=== PATIENT | female | born 1980 | race African-American/Black ===

== ENCOUNTER 2018-02-11 16:57 | Inpatient (IN) | payer BC ==
[2018-03-12 09:46] VITALS: BMI 29.0
[2018-03-13] MEDS ORDERED: Sodium Chloride 0.9% 10 ML ONE (07:05)
[2018-03-13] MEDS ORDERED: Thrombin 5000 UNITS/5 ML VIAL ONE ×2 (07:05→10:37)
[2018-03-13] MEDS ORDERED: Bacitracin Zinc Ointment 30 gm TUBE ONE (07:05)
[2018-03-13] MEDS ORDERED: Fentanyl 250 MCG/5 ML VIAL ONE (07:21)
[2018-03-13] MEDS ORDERED: CEFAZOLIN 2 GM/50 ML BAG ONE (07:28)
[2018-03-13] MEDS ORDERED: Midazolam HCl 2 mg/2 ml Vial ONE (07:29)
[2018-03-13] MEDS ORDERED: Fentanyl 100 MCG/2 ML VIAL ONE ×5 (07:29→15:06)
[2018-03-13 07:35] LABS: #Basophils 0.1 thou/uL (0.0-0.2); #Eosinphils 0.2 thou/uL (0.0-0.7); #Lymphocytes 2.8 thou/uL (1.20-3.40); #Monocytes 0.4 thou/uL (0.11-0.59); #Neutrophils 2.6 thou/uL (1.40-6.50); %Basophils 1.5 % (0.0-1.0); %Eosinophils 3.1 % (0.0-10.0); %Lymphocytes 47.1 % (21.0-51.0); %Monocytes 5.8 % (0.0-10.0); %Neutrophils 42.7 % (42.0-75.0); Hemoglobin 13.7 g/dL (12.0-16.0); Mean Corpuscular HGB CONC 32.9 g/dL (32.0-36.0); Mean Corpuscular Hemoglobin 31.5 pg (27.0-31.0); Mean Corpuscular Volume 95.6 fL (78.0-98.0); Platelet Count 273 thou/uL (130-400); RBC Distribution Width 12.5 % (11.5-14.5); Red Blood Cell (RBC) Count 4.35 mill/uL (4.20-5.40)
[2018-03-13 07:42] LABS: Prothrombin Time 13.1 SEC (12.0-14.7)
[2018-03-13 07:43] LABS: PTT 28.9 SEC (22.9-36.1)
[2018-03-13 07:54] LABS: Anion Gap 11 mmol/L (10-20); BUN (Urea Nitrogen) 4 mg/dL (7.0-18.7); Calc. Creatinine Clearance 121 mL/min (70-130); Calcium 9.8 mg/dL (7.8-10.44); Carbon Dioxide 27 mmol/L (22-29); Chloride 105 mmol/L (98-107); Estimated GFR-MDRD Greater than 90; Glucose 82 mg/dL (70-105); Potassium 3.8 mmol/L (3.5-5.1); Sodium 139 mmol/L (136-145)
[2018-03-13] MEDS ORDERED: PHENYLEPHRINE-NS 100 MCG/ML 10 ML SYRINGE ONE ×4 (09:10→13:07)
[2018-03-13] MEDS ORDERED: Albumin 5% 500 ML ONE (09:13)
[2018-03-13] MEDS ORDERED: Phenylephrine HCL 10 MG/ML VIAL ONE (09:16)
--- NOTE | 2018-03-13 12:38 | OP ---
DATE OF PROCEDURE: 03/13/2018 OR: OR #11. WOUND TYPE: Type 1 wound. SURGEON: Ghassan Faulkner M.D. PATIENT TRANSPORT OFFICER: Tristan Baker PA-C. PREPROCEDURE DIAGNOSES: Grade III L5 on S1 spondylolisthesis with L5 radiculopathy and low back and leg pain. POSTPROCEDURE DIAGNOSES: Grade III L5 on S1 spondylolisthesis with L5 radiculopathy and low back and leg pain. PROCEDURE: 1. L4-L5, L5-S1 posterolateral fusion with local bone autograft obtained from same incision, allogra ft and BMP. 2. L4, L5, S1 pedicle screw jigar fixation for stabilization of grade III spondylolisthesis. 3. L5-S1 laminectomies, facetectomy for decompression of the exiting left L5 and traversing left S1 nerve roots with foraminotomies. PROCEDURE: After informed consent was obtained, the patient was brought to OR 11. Proper patient pa use and identification was carried out. She was placed under excellent general endotracheal anesthes ia and positioned prone on the OR table. All appropriate points were padded. We identified the L4, L5, S1 dorsal spines and lamina and the spondylolisthesis segment of L5 on S1. This region was steri hugh cleansed, prepared, and draped. Proper patient pause and identification was carried out. The w ound was then opened with a combination of sharp, monopolar and blunt dissection, and the L4, L5 and S1 dorsal spines and lamina were exposed. The grade III spondylolisthesis site was identified L5 and S1 and the L4, L5 and S1 facet complexes at L4-L5 and L5-S1 along with transverse processes and sacr al ala were all exposed. Localization film confirmed our area of interest. We then performed a L5-S 1 laminectomy, facetectomy, particularly on the left maximize decompression of the L5 and S1 nerve ro ots. There was no spinal fluid leak. I followed the left L5 nerve root out until it descended anter ior to the transverse ligament. I assured freedom of the right L5 nerve root as well and the right S 1 nerve root. L4, L5 and S1 pedicle screw jigar fixation then occurred with final tightening, I was sa tisfied with both gross fluoroscopic and CT assessment of the hardware. Final tightening occurred. There was no spinal fluid leak. DuraSeal was placed over the dural tube to protect the dura, althoug h there was no spinal fluid leak. BMP was laid in the posterolateral region. Local bone autograft o btained from same incision and allograft for arthrodesis following decortication of the transverse pr ocesses and sacral ala. Copious irrigation occurred throughout as did maximizing hemostasis. The wo und was then closed in anatomic layers following the sprinkling of vancomycin. The patient then carter ged from anesthesia.
[2018-03-13] MEDS ORDERED: HYDROmorphone 2 MG/ML VIAL ONE ×2 (12:48→13:47)
[2018-03-13] MEDS ORDERED: Metoclopramide HCl 10 MG/2 ML VIAL ONE (13:07)
[2018-03-13] MEDS ORDERED: Ondansetron PF 4 MG/2 ML Vial ONE (13:07)
[2018-03-13] MEDS ORDERED: PROPOFOL 200 MG/20 ML VIAL ONE ×2 (13:07)
[2018-03-13] MEDS ORDERED: Lidocaine 1% PF 5 ML VIAL ONE ×2 (13:07)
[2018-03-13] MEDS ORDERED: Glycopyrrolate 0.2 MG/ML 5 ML SYRINGE ONE ×2 (13:07)
[2018-03-13] MEDS ORDERED: Dexamethasone 20 MG/5 ML VIAL ONE (13:07)
[2018-03-13] MEDS ORDERED: ePHEDrine/0.9% NaCl/PF SYRINGE 50 mg/10 ml ONE (13:07)
[2018-03-13] MEDS ORDERED: Promethazine HCl 25 MG/ML VIAL IM PRN ×2 (13:21→13:33)
[2018-03-13] MEDS ORDERED: Bisacodyl 10 MG SUPP PR PRN (13:21)
[2018-03-13] MEDS ORDERED: Fleet Enema 133 ML BOT PR PRN (13:21)
[2018-03-13] MEDS ORDERED: Milk Of Magnesia 30 ML UDCUP PO PRN (13:21)
[2018-03-13] MEDS ORDERED: Mag-Al 1200 mg/1200 mg/30 ML UDCUP PO PRN (13:21)
[2018-03-13] MEDS ORDERED: Morphine Sulfate 2 MG/ML SYRINGE SLOW IVP PRN (13:33)
[2018-03-13] MEDS ORDERED: Promethazine HCl 25 MG/ML VIAL SLOW IVP PRN (13:33)
[2018-03-13] MEDS ORDERED: PACU-Morphine 4MG/ML VIAL SLOW IVP PRN (13:33)
[2018-03-13] MEDS ORDERED: Ondansetron HCl/PF 4 MG/2 ML Vial IVP PRN (13:33)
[2018-03-13] MEDS ORDERED: HYDROmorphone 2 MG/ML VIAL SLOW IVP PRN (13:33)
[2018-03-13] MEDS ORDERED: Meperidine HCl/PF 25 MG/ML VIAL SLOW IVP PRN (13:33)
--- NOTE | 2018-03-13 15:36 | EKG ---
Test Reason : PREOP Blood Pressure : / mmHG Vent. Rate : 080 BPM Atrial Rate : 080 BPM P-R Int : 158 ms QRS Dur : 076 ms QT Int : 400 ms P-R-T Axes : 057 -01 030 degrees QTc Int : 461 ms Normal sinus rhythm Minimal voltage criteria for LVH, may be normal variant Borderline ECG Confirmed by MICHELLE CALDERON ([id number]) on 03/13/2018 3:36:21 PM Referred By: CHACE Confirmed By:MICHELLE CALDERON
[2018-03-13] MEDS: Cyclobenzaprine 10 MG TAB PO PRN (15:42)
[2018-03-13] MEDS: Sodium Chloride 0.9% 1,000 ML IV SCH (15:43)
[2018-03-13] MEDS: HYDROcodone/Acetaminophen 7.5/325 mg Tablet PO PRN (15:43)
[2018-03-13] MEDS ORDERED: CEFAZOLIN 2 GM/50 ML BAG IVPB SCH (16:00)
[2018-03-13] MEDS: Morphine 4 MG/ML VIAL SLOW IVP PRN ×3 (16:15→23:38)
[2018-03-13] MEDS: traMADol HCl 50 MG TAB PO PRN (17:20)
[2018-03-13] MEDS: Acetaminophen/Codeine 30-300mg Tablet PO PRN (17:20)
[2018-03-13] MEDS: CEFAZOLIN 2 GM/50 ML BAG IVPB SCH (20:41)
[2018-03-14] MEDS: HYDROcodone/Acetaminophen 7.5/325 mg Tablet PO PRN ×3 (00:47→09:00)
[2018-03-14] MEDS: Morphine 4 MG/ML VIAL SLOW IVP PRN ×10 (03:05→22:48)
[2018-03-14] MEDS: CEFAZOLIN 2 GM/50 ML BAG IVPB SCH ×3 (03:06→19:57)
[2018-03-14] MEDS: Cyclobenzaprine 10 MG TAB PO PRN ×2 (04:24→17:27)
[2018-03-14] MEDS: Sodium Chloride 0.9% 1,000 ML IV SCH ×2 (04:57→15:56)
[2018-03-14] MEDS ORDERED: Ketorolac Tromethamine 30 MG/ML VIAL IVP PRN (11:27)
[2018-03-14] MEDS: Gabapentin 300 MG CAP PO SCH ×2 (15:48→19:56)
[2018-03-14] MEDS: Acetaminophen/Codeine 30-300mg Tablet PO PRN (19:56)
[2018-03-14] MEDS: traMADol HCl 50 MG TAB PO PRN (23:05)
[2018-03-15] MEDS: Morphine 4 MG/ML VIAL SLOW IVP PRN ×5 (00:52→08:01)
[2018-03-15] MEDS: Cyclobenzaprine 10 MG TAB PO PRN ×3 (00:53→20:10)
[2018-03-15] MEDS: Acetaminophen/Codeine 30-300mg Tablet PO PRN ×4 (02:09→20:12)
[2018-03-15] MEDS: Sodium Chloride 0.9% 1,000 ML IV SCH ×2 (03:00→17:49)
[2018-03-15] MEDS: oxyCODONE/Acetaminophen 5 mg/325 mg Tablet PO PRN ×3 (04:57→23:02)
[2018-03-15] MEDS: traMADol HCl 50 MG TAB PO PRN ×2 (05:52→11:49)
[2018-03-15] MEDS: CEFAZOLIN 2 GM/50 ML BAG IVPB SCH ×3 (05:52→20:10)
[2018-03-15] MEDS: Gabapentin 300 MG CAP PO SCH ×3 (07:59→20:10)
[2018-03-15] MEDS: Citalopram 20 MG TAB PO SCH (07:59)
[2018-03-15] MEDS: Lisinopril/Hydrochlorothiazide 20 mg/12.5 mg Tablet PO SCH (08:00)
--- NOTE | 2018-03-15 09:31 | PRG ---
DATE OF SERVICE: 03/15/2018 SUBJECTIVE: I am visiting with Ms. Jalloh 2 days postoperatively. She continues to complain of right foot numbness and is having increased pain in her legs, as well. She does seem relatively comfortabl e in the bed; however. She is relatively poorly cooperative with exam, but certainly has strength in all muscle groups. With encouragement, she seems to have more strength. She reports that she stood several times yesterday. Overall, her progress has been quite slow and the pain in her legs and her subjective complaints of w eakness are somewhat concerning. Additionally, a Wright has been placed. We will watch her closely a nd consider repeat imaging with CT scan if there is no improvement or if there is any deterioration.
[2018-03-15] MEDS ORDERED: HYDROmorphone 10 mg/100 ml CADD IV PRN (11:14)
[2018-03-15] MEDS ORDERED: Meloxicam 15 MG TAB PO SCH (11:15)
[2018-03-15] MEDS ORDERED: Sodium Chloride 0.9% 500 ML IVPB SCH (17:15)
[2018-03-15] MEDS: Acetaminophen 325 MG TAB PO PRN (17:47)
[2018-03-15 19:32] LABS: Hemoglobin 9.6 g/dL (12.0-16.0); Mean Corpuscular HGB CONC 33.1 g/dL (32.0-36.0); Mean Corpuscular Hemoglobin 32.3 pg (27.0-31.0); Mean Corpuscular Volume 97.6 fL (78.0-98.0); Mean Platelet Volume 7.2 fL (7.4-10.4); Platelet Count 209 thou/uL (130-400); RBC Distribution Width 12.3 % (11.5-14.5); Red Blood Cell (RBC) Count 2.97 mill/uL (4.20-5.40); White Blood Cell (WBC) Count 15.6 thou/uL (4.8-10.8)
[2018-03-15 19:49] LABS: Band 2 % (5-11); Lymphocytes 13 % (21-51); MDiff Complete? YES; Monocytes 1 % (0-10); Neutrophil 84 % (42-75); PLT Morphology Comment Appears Adequate; Polychromasia SLIGHT = 2-3 cells (100X) (0-2/hpf)
[2018-03-15 19:51] LABS: Anion Gap 11 mmol/L (10-20); BUN (Urea Nitrogen) 12 mg/dL (7.0-18.7); Calc. Creatinine Clearance 116 mL/min (70-130); Calcium 8.3 mg/dL (7.8-10.44); Carbon Dioxide 25 mmol/L (22-29); Chloride 102 mmol/L (98-107); Estimated GFR-MDRD 87; Glucose 90 mg/dL (70-105); Potassium 3.4 mmol/L (3.5-5.1); Sodium 135 mmol/L (136-145)
[2018-03-15 20:59] LABS: Bilirubin Negative (Negative); Blood, Urine Moderate (Negative); Clarity CLEAR (Clear); Glucose, Urine (Dipstick) Negative (Negative); Leukocyte Small (Negative); Nitrite Negative (Negative); Protein, Urine (Dipstick) Trace mg/dL (Neg-Trace); Specific Gravity, Urine 1.027 (1.002-1.036); Urobilinogen 0.2 mg/dL (0.2-1.0)
[2018-03-15 21:00] LABS: Bacteria/HPF None Seen HPF (None Seen); Hyaline Casts/LPF 4-6 HYALINE CAST LPF (0-3 Hyaline); Pathc Cast-AUWi Flag 0.87 (0-2.49); Squamous Epithelial 0-3 HPF (0-3)
[2018-03-15 21:01] LABS: Yeast-AUWi Flag 59.4 (0-25.0)
[2018-03-15 21:12] LABS: Renal Epithelial 0-3 HPF (0-3)
--- NOTE | 2018-03-15 21:29 | ULT ---
BILATERAL LOWER EXTREMITY VENOUS DOPPLER ULTRASOUND EVALUATION 03/15/18 HISTORY: Bilateral lower extremity pain and swelling. Multiple longitudinal and transverse images of the right and left lower extremity venous systems wer e obtained using a multihertz linear array transducer. Real time, color flow and spectral waveform do ppler analysis demonstrates no evidence of acute or old clot seen in the right or left common femoral , superficial femoral, femora profunda, popliteal, posterior tibial vein, post trifurcation veins, an d right and left lower extremity greater saphenous veins. IMPRESSION: No evidence of right or left lower extremity deep venous thrombosis. POS: [facility]
[2018-03-16] MEDS: Acetaminophen/Codeine 30-300mg Tablet PO PRN ×4 (02:19→17:30)
[2018-03-16] MEDS: oxyCODONE/Acetaminophen 5 mg/325 mg Tablet PO PRN ×3 (03:22→13:27)
[2018-03-16] MEDS: CEFAZOLIN 2 GM/50 ML BAG IVPB SCH ×3 (03:23→20:13)
[2018-03-16] MEDS: Cyclobenzaprine 10 MG TAB PO PRN (03:44)
[2018-03-16] MEDS: traMADol HCl 50 MG TAB PO PRN ×2 (03:44→13:28)
[2018-03-16] MEDS: Gabapentin 300 MG CAP PO SCH ×3 (08:43→20:06)
[2018-03-16] MEDS: Citalopram 20 MG TAB PO SCH (08:44)
[2018-03-16] MEDS: Sodium Chloride 0.9% 1,000 ML IV SCH ×2 (08:45→23:26)
[2018-03-16] MEDS: Lisinopril/Hydrochlorothiazide 20 mg/12.5 mg Tablet PO SCH (08:46)
[2018-03-16 08:50] LABS: #Eosinphils 0.2 thou/uL (0.0-0.7); #Lymphocytes 2.7 thou/uL (1.20-3.40); #Neutrophils 9.7 thou/uL (1.40-6.50); %Basophils 0.2 % (0.0-1.0); %Eosinophils 1.3 % (0.0-10.0); %Lymphocytes 19.8 % (21.0-51.0); %Monocytes 7.4 % (0.0-10.0); %Neutrophils 71.3 % (42.0-75.0); Hemoglobin 8.5 g/dL (12.0-16.0); Mean Corpuscular HGB CONC 32.1 g/dL (32.0-36.0); Mean Corpuscular Hemoglobin 31.3 pg (27.0-31.0); Mean Corpuscular Volume 97.4 fL (78.0-98.0); Mean Platelet Volume 7.1 fL (7.4-10.4); Platelet Count 188 thou/uL (130-400); RBC Distribution Width 12.3 % (11.5-14.5); White Blood Cell (WBC) Count 13.6 thou/uL (4.8-10.8)
[2018-03-16 08:56] LABS: Anion Gap 9 mmol/L (10-20); BUN (Urea Nitrogen) 16 mg/dL (7.0-18.7); Calc. Creatinine Clearance 124 mL/min (70-130); Calcium 8.1 mg/dL (7.8-10.44); Carbon Dioxide 25 mmol/L (22-29); Chloride 104 mmol/L (98-107); Estimated GFR-MDRD Greater than 90; Glucose 82 mg/dL (70-105); Potassium 3.4 mmol/L (3.5-5.1); Sodium 135 mmol/L (136-145)
[2018-03-16] MEDS ORDERED: Meloxicam 15 MG TAB PO SCH (09:00)
[2018-03-16] MEDS ORDERED: tiZANidine HCl 4 MG TAB PO PRN (09:05)
--- NOTE | 2018-03-16 11:19 | CT ---
CT LUMBAR SPINE WITHOUT CONTRAST: HISTORY: A 37-year-old female with back surgery 3 days ago. Complains of low back pain and fever. FINDINGS: There are postop changes of posterior spinal fusion with bilateral screws at L4-L5-S1 level and assoc iated changes of laminectomy. There is grade II anterolisthesis of L5 over S1. Soft tissue air and a small amount of fluid in the surgical bed consistent with postop change. There is a tiny amount of free fluid in the pelvis. Metallic hardware appears intact. Exam is limited due to artifact from metallic hardware and absence of IV contrast. POS: [facility]
--- NOTE | 2018-03-16 13:16 | PDOC.PN ---
- Subjective Encounter Start Date: 03/16/18 Encounter Start Time: 11:00 Pt seen for management of medical comorbidities, including fevers. Denies chest pain. Reports low back pain. Feels weak. No nausea or vomiting. - Objective MAR Reviewed: Yes Vital Signs & Weight: Vital Signs (12 hours) Temp Pulse Resp BP Pulse Ox 03/16/18 11:47 98.7 F 101 H 20 95/60 97 03/16/18 08:44 99.8 F H 98 18 89/56 L 98 03/16/18 03:52 100.1 F H 102 H 26 H 89/56 L 99 Weight Weight 185 lb I&O: 03/15/18 03/16/18 03/17/18 07:59 06:59 06:59 Intake Total Output Total Balance Result Diagrams: 03/17/18 04:55 03/17/18 04:55 Additional Labs: Labs reviewed by me Phys Exam - Physical Examination Constitutional: NAD HEENT: moist MMs Neck: supple Respiratory: clear to auscultation bilateral Cardiovascular: RRR Gastrointestinal: soft s/p lumbar spine surgery Psychiatric: normal affect Dx/Plan (1) Fever Code(s): R50.9 - FEVER, UNSPECIFIED Status: Acute Comment: nalysis unremarkable. Pt is on cefazolin. Check chest x-ray after ensuring pt is not (2) Neuropathic pain Code(s): M79.2 - NEURALGIA AND NEURITIS, UNSPECIFIED Status: Chronic Comment : continue gabapentin - Plan * . Pt reports that she does not take any antihypertensives at home. Will add PRN IV hydralazine for blood pressure spikes. s/p lumbar spine surgery. DVT prophylaxis and pain management per neurosurgery service. Review of Systems - Review of Systems Constitutional: fever Respiratory: negative: Cough, Shortness of Breath, SOB with Excertion, Pleuritic Pain, Wheezing Cardiovascular: negative: chest pain, palpitations, orthopnea, paroxysmal nocturnal dyspnea, edema, light headedness Musculoskeletal: Back Pain - Medications/Allergies Allergies/Adverse Reactions: Allergies Allergy/AdvReac Type Severity Reaction Status Date / Time No Known Allergies Allergy Verified 03/12/18 09:46 Medications: Current Medications Acetaminophen (Tylenol) 650 mg PO Q4H PRN PRN Reason: Headache/Fever or Pain Last Admin: 03/15/18 17:47 Dose: 650 mg Acetaminophen/Codeine Phosphate (Tylenol #3) 1 tab PO Q3H PRN PRN Reason: Mild Pain (1-3) Last Admin: 03/16/18 11:55 Dose: 1 tab Al Hydroxide/Mg Hydroxide (Maalox) 30 ml PO Q4H PRN PRN Reason: Indigestion Bisacodyl (Dulcolax) 10 mg DC Q12H PRN PRN Reason: Constipation Cefazolin Sodium/Dextrose (Ancef 2 Gm/50 Ml) 2 gm IVPB 0400,1200,2000 [facility] Last Admin: 03/16/18 11:55 Dose: 2 gm Citalopram Hydrobromide (Celexa) 40 mg PO DAILY [facility] Last Admin: 03/16/18 08:44 Dose: 40 mg Gabapentin (Neurontin) 600 mg PO TID [facility] Last Admin: 03/16/18 08:43 Dose: 600 mg Lisinopril/HCTZ (Prinizide 20-12.5) 1 tab PO DAILY [facility] Last Admin: 03/16/18 08:46 Dose: Not Given Sodium Chloride (Normal Saline 0.9%) 1,000 mls @ 75 mls/hr IV .[id number] [facility] Last Admin: 03/16/18 08:45 Dose: 1,000 mls Magnesium Hydroxide (Milk Of Magnesium) 30 ml PO Q12H PRN PRN Reason: Constipation Meloxicam (Mobic) 15 mg PO DAILY [facility] Last Admin: 03/16/18 08:44 Dose: 15 mg Morphine Sulfate (Morphine) 2 mg SLOW IVP Q1H PRN PRN Reason: Severe Pain (7-10) Last Admin: 03/15/18 08:01 Dose: 2 mg Oxycodone/Acetaminophen (Percocet 5/325) 1 tab PO Q4H PRN PRN Reason: Moderate Pain (4-6) Last Admin: 03/16/18 08:44 Dose: 1 tab Promethazine HCl (Phenergan) 12.5 mg IM Q4H PRN PRN Reason: Nausea/Vomiting Sodium Biphosphate/Sodium Phosphate (Fleet Enema) 133 ml DC ONE PRN PRN Reason: Constipation Stop: 03/16/18 13:22 Sodium Chloride (Flush - Normal Saline) 10 ml IVF PRN PRN PRN Reason: Saline Flush Last Admin: 03/15/18 08:02 Dose: 10 ml Tizanidine HCl (Zanaflex) 4 mg PO Q8H PRN PRN Reason: SPASMS Last Admin: 03/16/18 11:55 Dose: 4 mg Tramadol HCl (Ultram) 50 mg PO Q6H PRN PRN Reason: Mild Pain (1-3) 2ND LINE Last Admin: 03/16/18 03:44 Dose: 50 mg
[2018-03-16 13:36] LABS: BHCG - Serum Negative (NEGATIVE); Pregs Control Background? CLEAR/WHITE (CLR/WHITE); Pregs Control Bar Appear? YES (CONTROL BAR)
[2018-03-16] MEDS ORDERED: Sodium Chloride 0.9% 1,000 ML IV SCH (16:30)
--- NOTE | 2018-03-16 17:04 | RAD ---
AP VIEW CHEST: 03/16/2018 HISTORY: Fever. Status post laminectomy fusion. COMPARISON: 05/16/2014 FINDINGS: AP view chest demonstrates mild cardiomegaly. No evidence of effusion is seen. No evidence of pneum onia or pneumothorax is seen. IMPRESSION: Unremarkable anterior-posterior view chest. POS: [facility]
[2018-03-16] MEDS: Ketorolac Tromethamine 30 MG/ML VIAL IVP PRN ×2 (17:30→23:21)
[2018-03-16] MEDS ORDERED: hydrALAZINE 20 MG/ML VIAL SLOW IVP PRN (18:50)
[2018-03-16] MEDS: Acetaminophen 325 MG TAB PO PRN (20:06)
[2018-03-16] MEDS ORDERED: Sodium Chloride 0.9% 500 ML IV SCH (22:45)
--- NOTE | 2018-03-16 22:46 | PDOC.EVN ---
Event Note - Event Note Event Note: RN called for low BP. Started on Tizanidine this AM which is very common to cause low BP. Will hold Tizanidine. 500 ml NS bolus. Increase IVF to 125 ml/hr.
[2018-03-17] MEDS: Acetaminophen 325 MG TAB PO PRN ×4 (01:32→13:04)
[2018-03-17] MEDS ORDERED: Sodium Chloride 0.9% 500 ML IV SCH (03:45)
[2018-03-17] MEDS: CEFAZOLIN 2 GM/50 ML BAG IVPB SCH ×3 (04:06→20:07)
[2018-03-17] MEDS: Ketorolac Tromethamine 30 MG/ML VIAL IVP PRN ×3 (04:46→20:13)
[2018-03-17] MEDS: Sodium Chloride 0.9% 1,000 ML IV SCH ×3 (04:52→20:16)
[2018-03-17 05:21] LABS: #Eosinphils 0.4 thou/uL (0.0-0.7); #Lymphocytes 1.7 thou/uL (1.20-3.40); #Monocytes 0.7 thou/uL (0.11-0.59); #Neutrophils 5.5 thou/uL (1.40-6.50); %Basophils 0.2 % (0.0-1.0); %Eosinophils 4.9 % (0.0-10.0); %Lymphocytes 20.3 % (21.0-51.0); %Monocytes 7.9 % (0.0-10.0); %Neutrophils 66.7 % (42.0-75.0); Hemoglobin 8.3 g/dL (12.0-16.0); Mean Corpuscular HGB CONC 32.3 g/dL (32.0-36.0); Mean Corpuscular Hemoglobin 31.8 pg (27.0-31.0); Mean Corpuscular Volume 98.4 fL (78.0-98.0); Mean Platelet Volume 7.3 fL (7.4-10.4); Platelet Count 179 thou/uL (130-400); RBC Distribution Width 12.3 % (11.5-14.5); Red Blood Cell (RBC) Count 2.61 mill/uL (4.20-5.40); White Blood Cell (WBC) Count 8.2 thou/uL (4.8-10.8)
[2018-03-17 05:34] LABS: ALT (SGPT) 8 U/L (8-55); AST (SGOT) 28 U/L (5-34); Albumin 2.7 g/dL (3.5-5.0); Alkaline Phosphatase 46 U/L (40-150); Anion Gap 8 mmol/L (10-20); BUN (Urea Nitrogen) 11 mg/dL (7.0-18.7); Bilirubin, Total 0.2 mg/dL (0.2-1.2); Calc. Creatinine Clearance 136 mL/min (70-130); Calcium 7.6 mg/dL (7.8-10.44); Carbon Dioxide 23 mmol/L (22-29); Chloride 109 mmol/L (98-107); Estimated GFR-MDRD Greater than 90; Globulin 2.5 g/dL (2.4-3.5); Glucose 84 mg/dL (70-105); Magnesium 1.7 mg/dL (1.6-2.6); Potassium 3.4 mmol/L (3.5-5.1); Protein, Total 5.2 g/dL (6.0-8.3); Sodium 137 mmol/L (136-145)
[2018-03-17] MEDS: Gabapentin 300 MG CAP PO SCH ×3 (08:03→20:09)
[2018-03-17] MEDS: Citalopram 20 MG TAB PO SCH (08:03)
[2018-03-17] MEDS: tiZANidine HCl 4 MG TAB PO PRN ×2 (08:03→17:12)
[2018-03-17] MEDS: Famotidine 20 MG TAB PO SCH ×2 (08:03→20:10)
--- NOTE | 2018-03-17 09:25 | PRG ---
DATE OF SERVICE: 03/17/2018 Ms. Jalloh is now postoperative day #4, having undergone a multilevel posterior lumbar fusion for a gra de III spondylolisthesis. The patient continues to complain of back pain and right buttock, posterio r thigh and foot numbness and tingling with some pain. She is on several different types of narcotic pain medications as well as gabapentin. She did have an ultrasound of the bilateral lower extremiti es as she has not been ambulating since surgery. This is negative. She remains with good strength; however in the bilateral lower extremities. We did have a long discussion about her becoming more mo bile and we would like to increase mobilization very soon to help prevent multiple complications post op. She stated her understanding. We will attempt to ambulate with therapy today. We are still als o making sure that her hypotension is minimized by minimizing her narcotics. We also discussed this. Please call with any changes in the patient's neurologic status. We appreciate the Hospitalist livia arora also following her.
[2018-03-17] MEDS: traMADol HCl 50 MG TAB PO PRN (09:26)
--- NOTE | 2018-03-17 12:12 | PDOC.PN ---
- Subjective Encounter Start Date: 03/17/18 Encounter Start Time: 07:40 Pt seen for followup re: fever. Denies fever. No nausea or vomiting. Low back pain+. - Objective MAR Reviewed: Yes Vital Signs & Weight: Vital Signs (12 hours) Temp Pulse Pulse Resp BP BP Pulse Ox 03/17/18 11:20 98.1 F 65 20 99/65 100 03/17/18 10:36 73 96/67 03/17/18 07:29 98.1 F 76 24 H 113/64 100 03/17/18 03:31 98.1 F 76 18 87/50 L 100 03/17/18 00:30 76 93/51 L Pulse Ox 03/17/18 11:20 03/17/18 10:36 100 03/17/18 07:29 03/17/18 03:31 03/17/18 00:30 Weight Weight 185 lb I&O: 03/16/18 03/17/18 03/18/18 06:59 06:59 06:59 Intake Total 5757 Output Total 2925 Balance 2832 Result Diagrams: 03/17/18 04:55 03/17/18 04:55 Additional Labs: Labs reviewed by me Phys Exam - Physical Examination Constitutional: NAD HEENT: moist MMs Neck: supple Respiratory: clear to auscultation bilateral Cardiovascular: RRR Gastrointestinal: soft Neurological: moves all 4 limbs Psychiatric: normal affect Dx/Plan (1) Fever Code(s): R50.9 - FEVER, UNSPECIFIED Status: Acute Comment: CXR unremarkable , pt afebrile overnight. Tizanidine discontinued due to hypotension. (2) Neuropathic pain Code(s): M79.2 - NEURALGIA AND NEURITIS, UNSPECIFIED Status: Chronic Comment : on gabapentin - Plan * . Review of Systems - Review of Systems Constitutional: negative: fever, chills, sweats, weakness, malaise Respiratory: negative: Cough, Shortness of Breath, SOB with Excertion, Pleuritic Pain, Wheezing Cardiovascular: negative: chest pain, palpitations, orthopnea, paroxysmal nocturnal dyspnea, edema, light headedness Musculoskeletal: Back Pain - Medications/Allergies Allergies/Adverse Reactions: Allergies Allergy/AdvReac Type Severity Reaction Status Date / Time No Known Allergies Allergy Verified 03/12/18 09:46 Medications: Current Medications Acetaminophen (Tylenol) 650 mg PO Q4H PRN PRN Reason: Headache/Fever or Pain Last Admin: 03/17/18 09:27 Dose: 650 mg Acetaminophen/Codeine Phosphate (Tylenol #3) 1 tab PO Q3H PRN PRN Reason: Mild Pain (1-3) Last Admin: 03/16/18 17:30 Dose: 1 tab Al Hydroxide/Mg Hydroxide (Maalox) 30 ml PO Q4H PRN PRN Reason: Indigestion Bisacodyl (Dulcolax) [address] Q12H PRN PRN Reason: Constipation Cefazolin Sodium/Dextrose (Ancef 2 Gm/50 Ml) 2 gm IVPB 0400,1200,2000 [facility] Last Admin: 03/17/18 04:06 Dose: 2 gm Citalopram Hydrobromide (Celexa) 40 mg PO DAILY [facility] Last Admin: 03/17/18 08:03 Dose: 40 mg Famotidine (Pepcid) 20 mg PO BID [facility] Last Admin: 03/17/18 08:03 Dose: 20 mg Gabapentin (Neurontin) 600 mg PO TID [facility] Last Admin: 03/17/18 08:03 Dose: 600 mg Lisinopril/HCTZ (Prinizide 20-12.5) 1 tab PO DAILY [facility] Last Admin: 03/16/18 08:46 Dose: Not Given Hydralazine HCl (Apresoline) 10 mg SLOW IVP Q6H PRN PRN Reason: SBP Greater Than 170 Sodium Chloride (Normal Saline 0.9%) 1,000 mls @ 125 mls/hr IV .Q8H [facility] Last Admin: 03/16/18 23:26 Dose: 1,000 mls Ketorolac Tromethamine (Toradol) 15 mg IVP Q6H PRN PRN Reason: Mild Pain (1-3) Stop: 03/21/18 16:20 Last Admin: 03/17/18 09:26 Dose: 15 mg Magnesium Hydroxide (Milk Of Magnesium) 30 ml PO Q12H PRN PRN Reason: Constipation Morphine Sulfate (Morphine) 2 mg SLOW IVP Q1H PRN PRN Reason: Severe Pain (7-10) Last Admin: 03/15/18 08:01 Dose: 2 mg Oxycodone/Acetaminophen (Percocet 5/325) 1 tab PO Q4H PRN PRN Reason: Moderate Pain (4-6) Last Admin: 03/16/18 13:27 Dose: 1 tab Promethazine HCl (Phenergan) 12.5 mg IM Q4H PRN PRN Reason: Nausea/Vomiting Sodium Chloride (Flush - Normal Saline) 10 ml IVF PRN PRN PRN Reason: Saline Flush Last Admin: 03/15/18 08:02 Dose: 10 ml Tizanidine HCl (Zanaflex) 4 mg PO Q8H PRN PRN Reason: SPASMS Last Admin: 03/17/18 08:03 Dose: 4 mg Tramadol HCl (Ultram) 50 mg PO Q6H PRN PRN Reason: Mild Pain (1-3) 2ND LINE Last Admin: 03/17/18 09:26 Dose: 50 mg
[2018-03-17] MEDS: oxyCODONE/Acetaminophen 5 mg/325 mg Tablet PO PRN (16:37)
[2018-03-17] MEDS: Acetaminophen/Codeine 30-300mg Tablet PO PRN (18:54)
[2018-03-18] MEDS: Morphine 4 MG/ML VIAL SLOW IVP PRN ×5 (00:30→23:22)
[2018-03-18] MEDS: Sodium Chloride 0.9% 1,000 ML IV SCH ×4 (01:17→23:50)
[2018-03-18] MEDS: oxyCODONE/Acetaminophen 5 mg/325 mg Tablet PO PRN ×3 (01:45→17:08)
[2018-03-18] MEDS: CEFAZOLIN 2 GM/50 ML BAG IVPB SCH ×3 (03:10→20:05)
[2018-03-18] MEDS: Ketorolac Tromethamine 30 MG/ML VIAL IVP PRN ×2 (03:10→20:06)
[2018-03-18] MEDS: tiZANidine HCl 4 MG TAB PO PRN ×3 (03:42→20:05)
[2018-03-18] MEDS: traMADol HCl 50 MG TAB PO PRN ×3 (03:42→23:23)
[2018-03-18] MEDS: Gabapentin 300 MG CAP PO SCH ×3 (08:20→20:05)
[2018-03-18] MEDS: Famotidine 20 MG TAB PO SCH ×2 (08:21→20:05)
[2018-03-18] MEDS: Citalopram 20 MG TAB PO SCH (08:21)
[2018-03-18 10:06] LABS: #Eosinphils 0.7 thou/uL (0.0-0.7); #Lymphocytes 1.7 thou/uL (1.20-3.40); #Monocytes 0.6 thou/uL (0.11-0.59); #Neutrophils 6.4 thou/uL (1.40-6.50); %Basophils 0.2 % (0.0-1.0); %Eosinophils 7.3 % (0.0-10.0); %Lymphocytes 17.9 % (21.0-51.0); %Monocytes 6.6 % (0.0-10.0); Mean Corpuscular HGB CONC 32.5 g/dL (32.0-36.0); Mean Corpuscular Hemoglobin 30.6 pg (27.0-31.0); Mean Corpuscular Volume 94.1 fL (78.0-98.0); Mean Platelet Volume 7.1 fL (7.4-10.4); Platelet Count 233 thou/uL (130-400); RBC Distribution Width 13.5 % (11.5-14.5); Red Blood Cell (RBC) Count 3.26 mill/uL (4.20-5.40); White Blood Cell (WBC) Count 9.4 thou/uL (4.8-10.8)
[2018-03-18 10:25] LABS: Anion Gap 8 mmol/L (10-20); BUN (Urea Nitrogen) 5 mg/dL (7.0-18.7); Calc. Creatinine Clearance 176 mL/min (70-130); Calcium 7.9 mg/dL (7.8-10.44); Carbon Dioxide 23 mmol/L (22-29); Chloride 109 mmol/L (98-107); Estimated GFR-MDRD Greater than 90; Glucose 81 mg/dL (70-105); Potassium 3.3 mmol/L (3.5-5.1); Sodium 137 mmol/L (136-145)
--- NOTE | 2018-03-18 10:55 | PRG ---
DATE OF SERVICE: 03/18/2018 Ms. Jalloh is now postoperative day #5, having undergone multilevel posterior lumbar fusion for a grade III spondylolisthesis. Mobilization continues to be an issue for the patient secondary to pain and hypotension. She was given 2 units of blood yesterday. She states overall, she does feel better tod ay. She was able to sit at the edge of the bed. On physical exam her she remains with good strength in the bilateral lower extremities. She does hav e continued complaints of right posterior thigh and right foot pain and numbness and tingling. She d id, however, voice that she is motivated to start moving and would like to go home, perhaps as early as tomorrow. We would like for her to be in her LSO brace when she is out of bed, but again we will plan to mobilize with PT. OT consult and rehab placement has been made as well, but if the patient i s stable enough for discharge home, then we will pursue this. We will await her activity level today and check back with her tomorrow. We appreciate hospitalist's continuing to monitor her other medic al issues including hypotension. Please call with any changes in the patient's neurologic status.
[2018-03-18] MEDS: Acetaminophen/Codeine 30-300mg Tablet PO PRN (11:30)
--- NOTE | 2018-03-18 14:42 | PQF ---
CLINICAL DOCUMENTATION IMPROVEMENT CLARIFICATION FORM: ICD-10 Updated PLEASE DO AN ADDENDUM TO THE PROGRESS NOTE WITH ANY DOCUMENTATION UPDATES OR ADDITIONS AND CARRY THROUGH TO DC SUMMARY. THANK YOU. DATE: 03/19/18 ATTN: DR. MAS Please exercise your independent, professional judgment in responding to the clarification form. Clinical indicators are provided on the bottom of this form for your review Please check appropriate box(s): [ ] Acute blood loss anemia [ ] Post-op anemia related to acute blood loss [ ] Anemia: [ ] Aplastic [ ] Nutritional [ ] Hemolytic [ ] Other diagnosis [ ] Unable to determine In addition, please specify: Present on Admission (POA): [ ] Yes [ ] No [ ] Unable to determine For continuity of documentation, please document condition throughout progress notes and discharge summary. Thank You. CLINICAL INDICATORS - SIGNS / SYMPTOMS / LABS HGN 03/13: 13.7 HGN 03/15: 9.6 HGN 03/17: 8.3 RISKS: SPINAL FUSION 03/13 TREATMENT: SERIAL LABS BLOOD TRANSFUSIONS 03/17 (This form is maintained as a part of the permanent medical record) 2014 [employer]. All Rights Reserved SHARLENE [email or web address] Office: [phone] [facility]ITAL[facility]
--- NOTE | 2018-03-18 16:23 | PDOC.PN ---
- Subjective Encounter Start Date: 03/18/18 Encounter Start Time: 10:20 Pt seen for followup re: hypokalemia. Reports she sat by side of bed earlier today. c/o low back pain. - Objective MAR Reviewed: Yes Vital Signs & Weight: Vital Signs (12 hours) Temp Pulse Resp BP Pulse Ox 03/18/18 15:46 98.7 F 79 16 117/73 98 03/18/18 11:40 99.9 F H 72 16 131/82 95 03/18/18 08:00 99.0 F 80 20 127/78 100 03/18/18 04:48 98.7 F 73 20 97/61 100 Weight Weight 185 lb I&O: 03/17/18 03/18/18 03/19/18 06:59 06:59 06:59 Intake Total 5757 3750 Output Total 2925 2650 Balance 2832 1100 Result Diagrams: 03/19/18 04:55 03/19/18 04:55 Additional Labs: Labs reviewed by me Phys Exam - Physical Examination Constitutional: NAD HEENT: moist MMs Neck: supple Respiratory: clear to auscultation bilateral Cardiovascular: RRR Gastrointestinal: soft Neurological: moves all 4 limbs Psychiatric: normal affect Dx/Plan (1) Hypokalemia Code(s): E87.6 - HYPOKALEMIA Status: Acute Comment: replace potassium, recheck (2) Fever Code(s): R50.9 - FEVER, UNSPECIFIED Status: Acute Comment: no clear etiology , continue to monitor. TSH is low, check free T3/T4 to r/o hyperthyroidism. (3) Neuropathic pain Code(s): M79.2 - NEURALGIA AND NEURITIS, UNSPECIFIED Status: Chronic Comment : continue gabapentin - Plan * . Review of Systems - Review of Systems Constitutional: weakness Cardiovascular: negative: chest pain, palpitations, orthopnea, paroxysmal nocturnal dyspnea, edema, light headedness Gastrointestinal: negative: Nausea, Vomiting, Abdominal Pain, Diarrhea, Constipation, Melena, Hematochezia Musculoskeletal: Back Pain. negative: Neck Pain, Shoulder Pain, Arm Pain, Hand Pain, Leg Pain, Foot Pain - Medications/Allergies Allergies/Adverse Reactions: Allergies Allergy/AdvReac Type Severity Reaction Status Date / Time No Known Allergies Allergy Verified 03/12/18 09:46 Medications: Current Medications Acetaminophen (Tylenol) 650 mg PO Q4H PRN PRN Reason: Headache/Fever or Pain Last Admin: 03/17/18 13:04 Dose: 650 mg Acetaminophen/Codeine Phosphate (Tylenol #3) 1 tab PO Q3H PRN PRN Reason: Mild Pain (1-3) Last Admin: 03/18/18 11:30 Dose: 1 tab Al Hydroxide/Mg Hydroxide (Maalox) 30 ml PO Q4H PRN PRN Reason: Indigestion Bisacodyl (Dulcolax) 10 mg RI Q12H PRN PRN Reason: Constipation Cefazolin Sodium/Dextrose (Ancef 2 Gm/50 Ml) 2 gm IVPB 0400,1200,2000 [facility] Last Admin: 03/18/18 11:30 Dose: 2 gm Citalopram Hydrobromide (Celexa) 40 mg PO DAILY [facility] Last Admin: 03/18/18 08:21 Dose: 40 mg Famotidine (Pepcid) 20 mg PO BID [facility] Last Admin: 03/18/18 08:21 Dose: 20 mg Gabapentin (Neurontin) 600 mg PO TID [facility] Last Admin: 03/18/18 14:44 Dose: 600 mg Lisinopril/HCTZ (Prinizide 20-12.5) 1 tab PO DAILY [facility] Last Admin: 03/16/18 08:46 Dose: Not Given Hydralazine HCl (Apresoline) 10 mg SLOW IVP Q6H PRN PRN Reason: SBP Greater Than 170 Sodium Chloride (Normal Saline 0.9%) 1,000 mls @ 125 mls/hr IV .Q8H [facility] Last Admin: 03/18/18 15:38 Dose: Not Given Ketorolac Tromethamine (Toradol) 15 mg IVP Q6H PRN PRN Reason: Mild Pain (1-3) Stop: 03/21/18 16:20 Last Admin: 03/18/18 03:10 Dose: 15 mg Magnesium Hydroxide (Milk Of Magnesium) 30 ml PO Q12H PRN PRN Reason: Constipation Morphine Sulfate (Morphine) 2 mg SLOW IVP Q1H PRN PRN Reason: Severe Pain (7-10) Last Admin: 03/18/18 14:43 Dose: 2 mg Oxycodone/Acetaminophen (Percocet 5/325) 1 tab PO Q4H PRN PRN Reason: Moderate Pain (4-6) Last Admin: 03/18/18 08:19 Dose: 1 tab Potassium Chloride (K-Dur) 40 meq PO ONE JAIDEN Promethazine HCl (Phenergan) 12.5 mg IM Q4H PRN PRN Reason: Nausea/Vomiting Sodium Chloride (Flush - Normal Saline) 10 ml IVF PRN PRN PRN Reason: Saline Flush Last Admin: 03/15/18 08:02 Dose: 10 ml Tizanidine HCl (Zanaflex) 4 mg PO Q8H PRN PRN Reason: SPASMS Last Admin: 03/18/18 10:06 Dose: 4 mg Tramadol HCl (Ultram) 50 mg PO Q6H PRN PRN Reason: Mild Pain (1-3) 2ND LINE Last Admin: 03/18/18 10:06 Dose: 50 mg
[2018-03-18] MEDS ORDERED: Potassium Chloride 20 MEQ TAB PO SCH (16:30)
[2018-03-18 20:43] LABS: Free T4 (Free Thyroxine) 0.79 ng/dL (0.70-1.48)
[2018-03-19] MEDS: oxyCODONE/Acetaminophen 5 mg/325 mg Tablet PO PRN ×5 (01:43→22:58)
[2018-03-19] MEDS: CEFAZOLIN 2 GM/50 ML BAG IVPB SCH ×3 (03:30→19:55)
[2018-03-19] MEDS: tiZANidine HCl 4 MG TAB PO PRN ×3 (03:30→19:55)
[2018-03-19] MEDS: Ketorolac Tromethamine 30 MG/ML VIAL IVP PRN ×2 (03:30→10:26)
[2018-03-19] MEDS: Morphine 4 MG/ML VIAL SLOW IVP PRN ×2 (05:19→14:46)
[2018-03-19 05:54] LABS: #Eosinphils 0.7 thou/uL (0.0-0.7); #Lymphocytes 1.6 thou/uL (1.20-3.40); #Monocytes 0.5 thou/uL (0.11-0.59); #Neutrophils 6.2 thou/uL (1.40-6.50); %Basophils 0.2 % (0.0-1.0); %Eosinophils 8.1 % (0.0-10.0); %Monocytes 5.8 % (0.0-10.0); %Neutrophils 67.9 % (42.0-75.0); Hemoglobin 10.3 g/dL (12.0-16.0); Mean Corpuscular HGB CONC 32.3 g/dL (32.0-36.0); Mean Corpuscular Hemoglobin 30.7 pg (27.0-31.0); Mean Corpuscular Volume 94.9 fL (78.0-98.0); Mean Platelet Volume 7.3 fL (7.4-10.4); Platelet Count 261 thou/uL (130-400); RBC Distribution Width 13.4 % (11.5-14.5); Red Blood Cell (RBC) Count 3.36 mill/uL (4.20-5.40); White Blood Cell (WBC) Count 9.1 thou/uL (4.8-10.8)
[2018-03-19 06:11] LABS: Anion Gap 10 mmol/L (10-20); BUN (Urea Nitrogen) 4 mg/dL (7.0-18.7); Calc. Creatinine Clearance 165 mL/min (70-130); Calcium 8.3 mg/dL (7.8-10.44); Carbon Dioxide 24 mmol/L (22-29); Chloride 105 mmol/L (98-107); Estimated GFR-MDRD Greater than 90; Glucose 75 mg/dL (70-105); Potassium 3.6 mmol/L (3.5-5.1); Sodium 135 mmol/L (136-145)
[2018-03-19] MEDS: traMADol HCl 50 MG TAB PO PRN ×3 (07:23→19:55)
[2018-03-19] MEDS: Sodium Chloride 0.9% 1,000 ML IV SCH ×4 (07:43→23:31)
[2018-03-19] MEDS: Citalopram 20 MG TAB PO SCH (08:37)
[2018-03-19] MEDS: Famotidine 20 MG TAB PO SCH ×2 (08:37→19:55)
[2018-03-19] MEDS: Gabapentin 300 MG CAP PO SCH ×3 (08:37→19:55)
[2018-03-19] MEDS ORDERED: methylPREDNISolone 4 mg Tablet PO SCH (08:58)
[2018-03-19] MEDS ORDERED: CONFIRM ALL DAY 1 DOSES ARE TIMED FOR DAY 1 FS SCH (10:00)
--- NOTE | 2018-03-19 10:14 | PRG ---
DATE OF SERVICE: 03/19/2018 Ms. Jalloh is now postoperative day #6, having undergone multilevel lumbar posterior fusion. Mobility again continues to be an issue today. The patient states that she has attempted to sit at the [facility] b ed and stand with help, but states due to a right posterior thigh pain she was unable to do this. Sh godwin states, however, she is motivated to walk and would like to go home. Physical Therapy has been wor rodriguez with the patient to attempt to mobilize. She remains with Wright catheter in place. She does odell ve good strength in the bilateral lower extremities with intact sensation to light touch throughout. Her wound is covered with a clean, dry gauze and tape and when uncovered there are sutures present. There is a very scant amount of drainage on the dressing, but nothing active and it appears as thoug h it is healing well. Again, I have had a long discussion with the patient in regards to her mobilit y and that she needs to mobilize so that she may meet criteria for going home. She again states she is motivated to do this. Due to continued worse on the right, bilateral posterior thigh pain with nu mbness into the right foot we will start her on a Medrol Dosepak and Protonix to see if this will hel p improve her symptoms and help her to ambulate. We will check back tomorrow and hope for dismissal soon. Please call with any changes in the patient's neurologic status. I should note that her hemog lobin has improved to 10.3 and she has a normal white blood cell count.
[2018-03-19] MEDS: methylPREDNISolone 4 mg Tablet PO SCH ×3 (10:19→19:55)
--- NOTE | 2018-03-19 14:44 | PDOC.PN ---
- Subjective Encounter Start Date: 03/19/18 Encounter Start Time: 09:00 Pt seen for followup re: hyponatremia. Reports still having back pain, sitting by edge of bed. - Objective Vital Signs & Weight: Vital Signs (12 hours) Temp Pulse Resp BP Pulse Ox 03/19/18 11:04 98.1 F 85 22 H 110/69 95 03/19/18 08:30 98 03/19/18 07:40 99.1 F 76 16 132/77 98 03/19/18 04:00 99.2 F 76 20 128/83 98 Weight Weight 185 lb I&O: 03/18/18 03/19/18 03/20/18 06:59 06:59 06:59 Intake Total 3750 700 Output Total 2650 4650 Balance 1100 -3950 Result Diagrams: 03/19/18 04:55 03/19/18 04:55 Phys Exam - Physical Examination Constitutional: NAD HEENT: moist MMs Neck: supple Respiratory: clear to auscultation bilateral Cardiovascular: RRR Gastrointestinal: soft Neurological: moves all 4 limbs Psychiatric: normal affect Dx/Plan (1) Hyponatremia Code(s): E87.1 - HYPO-OSMOLALITY AND HYPONATREMIA Status: Acute Comment: mild, likely asymptomatic (2) Fever Code(s): R50.9 - FEVER, UNSPECIFIED Status: Acute Comment: no clear etiology , continue to monitor. TSH is low, but free T3 and free T4 are normal. (3) Neuropathic pain Code(s): M79.2 - NEURALGIA AND NEURITIS, UNSPECIFIED Status: Chronic Comment : on gabapentin (4) Hypokalemia Code(s): E87.6 - HYPOKALEMIA Status: Resolved - Plan * . Review of Systems - Review of Systems Cardiovascular: negative: chest pain, palpitations, orthopnea, paroxysmal nocturnal dyspnea, edema, light headedness Musculoskeletal: Back Pain - Medications/Allergies Allergies/Adverse Reactions: Allergies Allergy/AdvReac Type Severity Reaction Status Date / Time No Known Allergies Allergy Verified 03/12/18 09:46 Medications: Current Medications Acetaminophen (Tylenol) 650 mg PO Q4H PRN PRN Reason: Headache/Fever or Pain Last Admin: 03/17/18 13:04 Dose: 650 mg Acetaminophen/Codeine Phosphate (Tylenol #3) 1 tab PO Q3H PRN PRN Reason: Mild Pain (1-3) Last Admin: 03/18/18 11:30 Dose: 1 tab Al Hydroxide/Mg Hydroxide (Maalox) 30 ml PO Q4H PRN PRN Reason: Indigestion Bisacodyl (Dulcolax) 10 mg MS Q12H PRN PRN Reason: Constipation Last Admin: 03/19/18 01:52 Dose: 10 mg Cefazolin Sodium/Dextrose (Ancef 2 Gm/50 Ml) 2 gm IVPB 0400,1200,2000 [facility] Last Admin: 03/19/18 12:45 Dose: 2 gm Citalopram Hydrobromide (Celexa) [address] [facility] Last Admin: 03/19/18 08:37 Dose: 40 mg Famotidine (Pepcid) [address] [facility] Last Admin: 03/19/18 08:37 Dose: 20 mg Gabapentin (Neurontin) [address] [facility] Last Admin: 03/19/18 14:30 Dose: 600 mg Lisinopril/HCTZ (Prinizide 20-12.5) [address] [facility] Last Admin: 03/16/18 08:46 Dose: Not Given Hydralazine HCl (Apresoline) 10 mg SLOW IVP Q6H PRN PRN Reason: SBP Greater Than 170 Sodium Chloride (Normal Saline 0.9%) 1,000 mls @ 125 mls/hr IV .Q8H [facility] Last Admin: 03/19/18 08:04 Dose: Not Given Ketorolac Tromethamine (Toradol) 15 mg IVP Q6H PRN PRN Reason: Mild Pain (1-3) Stop: 03/21/18 16:20 Last Admin: 03/19/18 10:26 Dose: 15 mg Magnesium Hydroxide (Milk Of Magnesium) 30 ml PO Q12H PRN PRN Reason: Constipation Methylprednisolone (Medrol) 8 mg PO 1200,1700,2100 [facility] Stop: 03/19/18 21:01 Last Admin: 03/19/18 10:19 Dose: 8 mg Methylprednisolone (Medrol) 4 mg PO 0800,1300,1800 [facility] Stop: 03/20/18 18:01 Methylprednisolone (Medrol) [address] [facility] Stop: 03/20/18 21:01 Methylprednisolone (Medrol) 4 mg PO 0800,1200,1700,2100 [facility] Stop: 03/21/18 21:01 Methylprednisolone (Medrol) 4 mg PO 0800,1200,1700 [facility] Stop: 03/22/18 17:01 Methylprednisolone (Medrol) 4 mg PO 0800,1700 [facility] Stop: 03/23/18 17:01 Methylprednisolone (Medrol) [address] [facility] Stop: 03/24/18 08:01 Miscellaneous Information (Communication Order-Pharmacy) [address] [facility] Morphine Sulfate (Morphine) 2 mg SLOW IVP Q1H PRN PRN Reason: Severe Pain (7-10) Last Admin: 03/19/18 05:19 Dose: 2 mg Oxycodone/Acetaminophen (Percocet 5/325) 1 tab PO Q4H PRN PRN Reason: Moderate Pain (4-6) Last Admin: 03/19/18 12:44 Dose: 1 tab Pantoprazole Sodium (Protonix) [address] [facility] Last Admin: 03/19/18 10:20 Dose: Not Given Promethazine HCl (Phenergan) 12.5 mg IM Q4H PRN PRN Reason: Nausea/Vomiting Sodium Chloride (Flush - Normal Saline) 10 ml IVF PRN PRN PRN Reason: Saline Flush Last Admin: 03/15/18 08:02 Dose: 10 ml Tizanidine HCl (Zanaflex) 4 mg PO Q8H PRN PRN Reason: SPASMS Last Admin: 03/19/18 12:44 Dose: 4 mg Tramadol HCl (Ultram) 50 mg PO Q6H PRN PRN Reason: Mild Pain (1-3) 2ND LINE Last Admin: 03/19/18 14:30 Dose: 50 mg
[2018-03-20] MEDS: Ketorolac Tromethamine 30 MG/ML VIAL IVP PRN (01:35)
[2018-03-20] MEDS: oxyCODONE/Acetaminophen 5 mg/325 mg Tablet PO PRN ×3 (03:13→12:54)
[2018-03-20] MEDS: CEFAZOLIN 2 GM/50 ML BAG IVPB SCH ×2 (03:13→11:03)
[2018-03-20] MEDS: traMADol HCl 50 MG TAB PO PRN ×2 (05:33→11:41)
[2018-03-20] MEDS: tiZANidine HCl 4 MG TAB PO PRN (05:33)
[2018-03-20] MEDS: Sodium Chloride 0.9% 1,000 ML IV SCH (07:21)
[2018-03-20 07:55] VITALS: TEMP 98.1
[2018-03-20] MEDS ORDERED: methylPREDNISolone 4 mg Tablet PO SCH ×2 (08:00→21:00)
--- NOTE | 2018-03-20 08:00 | PRG ---
DATE OF SERVICE: 03/20/2018 Ms. Jalloh is now postoperative day #7, having undergone multilevel lumbar screw and jigar fixation for g rade III spondylolisthesis. The patient states she has walked 20 feet and though continues to have i ncisional low back pain and right greater than left posterior thigh pain with numbness into the right foot, she feels as overall things are stable from yesterday. She has requested to go home with home health. She remains with good strength in the bilateral lower extremities with intact sensation to light touch throughout. Her incision is clean, dry, and intact and closed with interrupted vertical mattress Ethilon sutures. There was no drainage from the incision. I will send her home on a Medrol Dosepak and Protonix as well as with pain medications and a prescription for a rolling walker. Plan for dismissal later this afternoon and we will discontinue the Wright today. Please call with any ch anges in the patient's neurologic status.
[2018-03-20] MEDS: Famotidine 20 MG TAB PO SCH (08:31)
[2018-03-20] MEDS: Citalopram 20 MG TAB PO SCH (08:31)
[2018-03-20] MEDS: Gabapentin 300 MG CAP PO SCH (08:31)
--- NOTE | 2018-03-20 10:03 | PRG ---
DATE OF SERVICE: 03/20/2018 SUBJECTIVE: Ms. Jalloh is now 1 week out from grade 3 spondylolisthesis, L5-S1 stabilization with L4-S 1 instrumentation, L5-S1 decompression. She is ready to be dismissed. This morning, she is ambulati ng. We will remove her Wright catheter as long as she is spontaneously voiding. We will plan dismiss al. We have had issues with pain control and it appears as if her radiculitis is improving in the pr esence of a Medrol Dosepak. I extensively went over intra and postoperative issues with her and she will be dismissed. I should note neurologically she is intact and appears to be in good spirits this morning.
[2018-03-20 13:36] VITALS: BP 136/83
[2018-03-21] MEDS ORDERED: methylPREDNISolone 4 mg Tablet PO SCH (08:00)
[2018-03-22] MEDS ORDERED: methylPREDNISolone 4 mg Tablet PO SCH (08:00)
[2018-03-23] MEDS ORDERED: methylPREDNISolone 4 mg Tablet PO SCH (08:00)
[2018-03-24] MEDS ORDERED: methylPREDNISolone 4 mg Tablet PO SCH (08:00)
== END 2018-03-20 13:40 | disposition home health service (06) | DRG 460 ==
LOC: SURG A 03-13 06:29 → SJJU 03-13 14:08
PROVIDERS: ADMIT Surgery; ATTEND Surgery
PROC: 0SG0071 Fusion of Lumbar Vertebral Joint with Autologous Tissue Substitute, Posterior Approach, Posterior Column, Open Approach (ICD-10-PCS; principal; 2018-03-13)
PROC: 01NB0ZZ Release Lumbar Nerve, Open Approach (ICD-10-PCS; 2018-03-13)
PROC: 0SG3071 Fusion of Lumbosacral Joint with Autologous Tissue Substitute, Posterior Approach, Posterior Column, Open Approach (ICD-10-PCS; 2018-03-13)
PROC: 3E0U0GB Introduction of Recombinant Bone Morphogenetic Protein into Joints, Open Approach (ICD-10-PCS; 2018-03-13)
PROC: 30233N1 Transfusion of Nonautologous Red Blood Cells into Peripheral Vein, Percutaneous Approach (ICD-10-PCS; 2018-03-17)
DX: M43.17 Spondylolisthesis, lumbosacral region (principal); E87.1 Hypo-osmolality and hyponatremia; M54.16 Radiculopathy, lumbar region; E87.6 Hypokalemia; I95.9 Hypotension, unspecified
CPT/HCPCS: 36415; 36430; 71045; 72131; 76001; 80048; 80053; 81003; 81015; 83735; 84439; 84443; 84481; 84703; 85025; 85610; 85730; 86850; 86900; 86901; 87040; 87086; 93005; 93010; 93970; C1713; G8978-GP-CM; G8979-GP-CK; G8987-GO-CM; G8988-GO-CK; J0131; J1100; J1170; J1885; J2001; J2250; J2270; J2370; J2405; J2704; J2765; J3010; J3370; J3490; P9016; P9045

== ENCOUNTER 2018-04-23 14:17 | Outpatient (CLI) | payer BC ==
[~2018-04-23 14:17] MED LIST: Lidocaine 2% Jelly 5 ML TUBE ONE; Sodium Chloride 0.9% 15 ML NEB ONE
--- NOTE | 2018-04-23 22:31 | HP ---
HISTORY OF PRESENT ILLNESS: Ms. Paulo Jalloh is a very pleasant 37-year-old, who presents to the [facility] for evaluation of a nonhealing surgical wound of the back in the midline subsequent to surgery by Dr. Ghassan Faulkner on 03/13/2018. The patient underwent back surgery for grade 3 L5 on S1 spondylolisthesis with L5 radiculopathy and low back and leg pain. The patient states that the wound of her back in the midline developed over two weeks following her back surgery. The patient states that she has been receiving dressing changes of Medihoney with the assistance of home health. She states that she is also taking Keflex as prescribed by Dr. Faulkner. The patient was referred to the Wound Center by Dr. Faulkner on 04/10/2018. PAST MEDICAL HISTORY: Low back pain. PAST SURGICAL HISTORY: 1. Back surgery as per HPI. 2. Cholecystectomy. MEDICATIONS: 1. Gabapentin. 2. Tizanidine. 3. Oxycodone/acetaminophen. 4. Ibuprofen. 5. Cymbalta. 6. Keflex. ALLERGIES: NO KNOWN DIAGNOSED ALLERGIES. SOCIAL HISTORY: Negative for tobacco or EtOH use. FAMILY HISTORY: Significant for diabetes mellitus. The patient states that her father, daughter, and a few relatives on the maternal side of her family were diagnosed with diabetes mellitus. Family history is also significant for coronary artery disease. The patient states that her father was diagnosed with coronary artery disease. PHYSICAL EXAMINATION: VITAL SIGNS: Temperature 97.7, pulse 83, respirations 18, blood pressure 129/77. GENERAL: A 37-year-old female sitting on chair in examination room, in no acute distress. HEENT: Normocephalic, atraumatic. NECK: No nuchal rigidity. CHEST: Clear to auscultation. CV: Regular rate and rhythm. ABDOMEN: Soft. BACK: A midline wound is present which measures approximately 10.7 x 2.0 cm. Granulation tissue is visible within the wound margins. No purulent drainage is associated with the wound. No erythema of the skin surrounding the wound is present. No maceration of the skin of the erasmo-wound is noted. EXTREMITIES: No clubbing or cyanosis. ASSESSMENT AND PLAN: 1. Midline wound of back subsequent to surgery for grade 3 L5 on S1 spondylolisthesis with L5 radiculopathy and low back and leg pain on 03/13/[address] Ghassan Faulkner. Arrangements will be made for the initiation of negative pressure therapy with dressing changes of the wound VAC three times per week with the assistance of home health. I will see Ms. Jalloh in 1 to 2 weeks after negative pressure therapy has been initiated. Until the wound VAC becomes available, the patient is to receive dressing changes of Aquacel AG packing strips followed by Mepilex border 3 times per week after cleansing and irrigation with the assistance of home health. The patient is to continue p.o. antibiotics as per Dr. Faulkner. 2. Low back pain. Job ID: [id number]
== END 2018-04-23 14:18 | disposition home or self-care (01) ==
LOC: WCC 14:17
PROVIDERS: ATTEND Family Medicine
DX: T81.89XD Other complications of procedures, not elsewhere classified, subsequent encounter (principal); M54.5 Low back pain
CPT/HCPCS: 97602; 99203; A4218; G0463

== ENCOUNTER 2018-05-07 13:17 | Outpatient (CLI) | payer BC ==
--- NOTE | 2018-05-07 14:24 | PRG ---
DATE OF SERVICE: HISTORY: Ms. Paulo Jalloh is a very pleasant 37-year-old, who presents to the [facility]ound Center for evaluation of a nonhealing surgical wound of the back in the midline subsequent to surgery by Dr. Ghassan Faulkner on 03/13/2018. The patient underwent back surgery for grade 3 L5 on S1 spondylolisthesis with L5 radiculopathy and low back and leg pain. The patient previously stated that the wound of her back in the midline developed over two weeks following her back surgery. The patient stated that she had been receiving dressing changes of Medihoney with the assistance of Home Health prior to being seen in the Wound Center. The patient stated that she had also been taking Keflex as prescribed by Dr. Faulkner at the time of her initial presentation to the Wound Center. The patient was referred to the Wound Center by Dr. Faulkner on 04/10/2018. After being seen in the Wound Center, negative pressure therapy was initiated. The patient has been receiving dressing changes of the wound VAC three times per week with the assistance of Home Health. PHYSICAL EXAMINATION: VITAL SIGNS: Temperature 97.6, pulse 91, respirations 19, blood pressure 154/79. BACK: Two midline wounds are present which measure approximately 4.5 x 0.7 cm and 1.9 x 1.2 cm. Granulation tissue is visible within the wound margins of both wounds. No purulent drainage is associated with either wound. No erythema of the skin surrounding either wound is present. No maceration of the skin of the periwound of either wound is noted. ASSESSMENT AND PLAN: 1. Midline wounds of back subsequent to surgery for grade 3 L5 on S1 spondylolisthesis with L5 radiculopathy and low back and leg pain on 03/13/2018, by Dr. Ghassan Faulkner. Negative pressure therapy will be continued with dressing changes of the wound VAC three times per week with the assistance of Home Health. I will see Ms. Jalloh in 2 weeks. 2. Low back pain. Job ID: [id number]
[2018-05-07] MEDS ORDERED: Sodium Chloride 0.9% 15 ML NEB ONE (15:00)
== END 2018-05-07 13:18 | disposition home or self-care (01) ==
LOC: WCC 13:17
PROVIDERS: ATTEND Family Medicine
DX: T81.89XD Other complications of procedures, not elsewhere classified, subsequent encounter (principal); M54.5 Low back pain
CPT/HCPCS: 97605; A4218

== ENCOUNTER 2018-05-19 16:10 | Outpatient (CLI) | payer BC ==
[~2018-05-19 16:10] MED LIST changes: -Lidocaine 2% Jelly 5 ML TUBE ONE; +Lidocaine 4% Topical Sol 50 ML BOT ONE
--- NOTE | 2018-05-19 17:59 | PRG ---
DATE OF SERVICE: 05/19/2018 SUBJECTIVE: Ms. Paulo Jalloh is a very pleasant 37-year-old, who presents to the [facility]ound Center for evaluation of a nonhealing surgical wound of the back in the midline subsequent to surgery by Dr. Ghassan Faulkner on 03/13/2018. The patient underwent back surgery for grade 3, L5 on S1 spondylolisthesis with L5 radiculopathy and low back and leg pain. The patient previously stated that the wound of her back in the midline developed over two weeks following her back surgery. The patient stated that she has been receiving dressing changes of Medihoney with the assistance of Home Health prior to being seen in the Wound Center. The patient stated that she had also been taking Keflex as prescribed by Dr. Faulkner at the time of her initial presentation to the Wound Center. The patient was referred to the Wound Center by Dr. Faulkner on 04/10/2018. After being seen in the Wound Center, negative pressure therapy was initiated. The patient has been receiving dressing changes of the wound VAC three times per week with the assistance of Home Health. OBJECTIVE: VITAL SIGNS: Temperature 98.2, pulse 80, respirations 19, and blood pressure 129/78. BACK: Two midline wounds are present, which measure approximately 2.0 x 0.5 cm and 1.5 x 0.5 cm. Granulation tissue is present within the margins of both wounds. No purulent drainage is associated with either wound. No erythema of the skin surrounding either wound is present. No maceration of the skin of the periwound of either wound is noted. ASSESSMENT AND PLAN: 1. Midline wound of back subsequent to surgery for grade 3, L5 on S1 spondylolisthesis with L5 radiculopathy and low back and leg pain on 03/13/[address] Ghassan Faulkner. Negative pressure therapy will be discontinued today. Dressing changes of Aquacel Ag and Mepilex border will be initiated. These dressing changes are to be performed 3 times per week after cleansing and irrigation with the assistance of Home Health. I will see Ms. Jalloh in 2 weeks. 2. Low back pain. Job ID: [id number]
== END 2018-05-19 16:11 | disposition home or self-care (01) ==
LOC: WCC 16:10
PROVIDERS: ATTEND Family Medicine
DX: T81.89XD Other complications of procedures, not elsewhere classified, subsequent encounter (principal); M54.5 Low back pain
CPT/HCPCS: 97602; A4218; J2001